=== PATIENT | female | born 1995 | race Hispanic/Latino ===

== ENCOUNTER 2017-11-14 03:30 | Inpatient (IN) | payer MEDICAID ==
[~2017-11-14] VITALS: Ht 162.6 cm; Wt 84.8 kg
[~2017-11-14 03:30] MED LIST: DOCU-116 PO; IBUP-2077 PO; PREN-196 PO
[2017-11-14 04:31] LABS: APPEARANCE,URINE Cloudy (CLEAR); BILIRUBIN,URINE Negative (NEGATIVE); COLOR,URINE Yellow (YELLOW); GLUCOSE, URINE (UA) Negative (NEGATIVE); KETONES,URINE Negative (NEGATIVE); LEUKOCYTE ESTERASE ,URINE Moderate (NEGATIVE); NITRATE,URINE Negative (NEGATIVE); OCCULT BLOOD,URINE Negative (NEGATIVE); PROTEIN,URINE Trace (NEGATIVE)
[2017-11-14] MEDS ORDERED: CEFAZOLIN SODIUM 1 GM VIAL IVP PRN (04:45)
[2017-11-14] MEDS ORDERED: LACTATED RINGERS 1000ML 1,000 ML IV SCH (04:45)
[2017-11-14 04:53] LABS: HEMATOCRIT 34.7 % (36-48); MEAN CORPUSCULAR HEMOGLOBIN 25.5 pg (27.0-33.0); MEAN CORPUSCULAR HGB CONC 31.6 g/dL (32.0-36.0); MEAN CORPUSCULAR VOLUME 80.9 fL (79-99); PLATELET COUNT (AUTO) 210 K/uL (130-400); RED BLOOD CELL COUNT(AUTO) 4.29 MIL/uL (4.00-5.50); RED CELL DISTRIBUTION WIDTH 18.1 % (11.0-15.5); WHITE BLOOD COUNT (AUTO) 11.3 K/uL (4.8-10.8)
[2017-11-14] MEDS: LACTATED RINGERS 1000ML 1,000 ML IV SCH ×2 (04:56→05:35)
[2017-11-14 04:57] LABS: BACTERIA,URINE Moderate /HPF (None Seen); RBC,URINE 0-1 /HPF (0-1)
[2017-11-14] MEDS ORDERED: BUTORPHANOL TARTRATE 2 MG/ML ONE (05:11)
[2017-11-14] MEDS ORDERED: BUTORPHANOL TARTRATE 2 MG/ML IVP ONE (05:15)
[2017-11-14] MEDS ORDERED: FENTANYL CITRATE PF 50 MCG/1 ML 2ML VIAL ONE (07:13)
[2017-11-14] MEDS ORDERED: OXYTOCIN 10 USP UNITS/ML ONE ×3 (07:13→17:35)
[2017-11-14] MEDS ORDERED: PHENYLEPHRINE HCL 10 MG/ML 1ML VIAL IV ONE (07:13)
[2017-11-14] MEDS ORDERED: DURAMORPH PF1 MG/ML 10ML AMP IV ONE (07:13)
[2017-11-14] MEDS ORDERED: CEFAZOLIN SODIUM 1 GM VIAL IVP ONE (07:30)
[2017-11-14] MEDS ORDERED: OXYTOCIN 10 UNIT/1ML 10ML VIAL ONE (07:50)
[2017-11-14] MEDS ORDERED: LACTATED RINGERS 1000ML 1,000 ML IV ONE (09:26)
[2017-11-14 09:35] VITALS: BP 105/62
[2017-11-14] MEDS ORDERED: OXYTOCIN-LR 20 UNITS/1000 ML 1,000 ML IV PRN (09:46)
[2017-11-14] MEDS ORDERED: SODIUM CHLORIDE 0.9% 10 ML VIAL IVP PRN (10:00)
[2017-11-14] MEDS ORDERED: NALOXONE HCL 0.4 MG/1 ML ML IVP PRN (10:30)
[2017-11-14] MEDS ORDERED: ONDANSETRON HCL 4 MG/2 ML 8 MG in SODIUM CHLORIDE 0.9% 50 ML IVP NR (10:30)
[2017-11-14] MEDS ORDERED: ONDANSETRON HCL 4 MG/2 ML VIAL IVP PRN (10:30)
[2017-11-14] MEDS ORDERED: METOCLOPRAMIDE 10 MG/2 ML VIAL IVP PRN (10:30)
[2017-11-14] MEDS ORDERED: HYDROCODONE/ACETAMINOPHEN 5/325 MG TAB PO PRN (10:30)
[2017-11-14] MEDS ORDERED: PROMETHAZINE HCL 25 MG/ML 1ML AMPULE IM PRN (10:30)
[2017-11-14] MEDS ORDERED: DiphenhydrAMINE HCL 50 MG/ML VIAL IVP PRN (10:30)
[2017-11-14] MEDS ORDERED: EPHEDRINE SULFATE 50 MG/ML AMPULE IVP PRN (10:30)
[2017-11-14] MEDS ORDERED: MORPHINE SULFATE 2 MG/ML 1ML SYG IVP PRN (10:30)
[2017-11-14] MEDS: ONDANSETRON HCL 4 MG/2 ML VIAL IVP PRN ×2 (11:34→18:49)
[2017-11-14 11:41] VITALS: BP_SYST 105; BP_SYST 109; BP_DIAS 59; BP_DIAS 61
[2017-11-14 15:31] VITALS: BP 99/52
[2017-11-14] MEDS: HYDROCODONE/ACETAMINOPHEN 5/325 MG TAB PO PRN (18:49)
[2017-11-14 19:48] VITALS: BP 97/55
[2017-11-15] MEDS: DEXTROSE 5 %-0.45 % NACL 1,000 ML IV PRN ×2 (00:15→05:37)
[2017-11-15 00:39] VITALS: BP 91/53
[2017-11-15 04:31] VITALS: BP 96/58
[2017-11-15] MEDS ORDERED: BISACODYL 10 MG SUPP.RECT RC PRN (05:15)
[2017-11-15] MEDS ORDERED: ACETAMINOPHEN-CODEINE 300/30MG TAB PO PRN (05:15)
[2017-11-15] MEDS ORDERED: HYDROCODONE/ACETAMINOPHEN 5/325 MG TAB PO PRN ×2 (05:15)
[2017-11-15] MEDS ORDERED: LANOLIN 30GM OINTMENT TP PRN (05:15)
[2017-11-15] MEDS ORDERED: ACETAMINOPHEN EXTRA STRENGTH 500 MG TABLET PO PRN (05:15)
[2017-11-15] MEDS: HYDROCODONE/ACETAMINOPHEN 5/325 MG TAB PO PRN (05:24)
[2017-11-15 05:34] LABS: HEMATOCRIT 26.9 % (36-48); MEAN CORPUSCULAR HGB CONC 32.2 g/dL (32.0-36.0); MEAN CORPUSCULAR VOLUME 80.9 fL (79-99); PLATELET COUNT (AUTO) 167 K/uL (130-400); RED BLOOD CELL COUNT(AUTO) 3.32 MIL/uL (4.00-5.50); RED CELL DISTRIBUTION WIDTH 18.1 % (11.0-15.5); WHITE BLOOD COUNT (AUTO) 11.3 K/uL (4.8-10.8)
[2017-11-15 07:48] VITALS: BP 109/73
[2017-11-15 08:24] LABS: HEPATITIS Bs ANTIGEN SCREEN P Negative (Negative)
[2017-11-15] MEDS: DOCUSATE SODIUM 100 MG CAP PO SCH ×2 (08:51→20:27)
[2017-11-15] MEDS: SIMETHICONE 80 MG TAB.CHEW PO PRN ×2 (08:51→22:03)
[2017-11-15] MEDS: IBUPROFEN 600 MG TABLET PO PRN ×2 (08:51→17:20)
[2017-11-15] MEDS ORDERED: MEASLES/MUMPS/RUBELLA VACCINE, LIVE 0.5 ML/VIAL SQ SCH (09:00)
[2017-11-15] MEDS ORDERED: DIPH,PERTUSS(ACELL),TET VAC/PF 0.5 ML VIAL IM SCH (09:00)
[2017-11-15 11:28] VITALS: BP 87/57
[2017-11-15 15:54] VITALS: BP 100/58
[2017-11-15 19:56] VITALS: BP 113/62
[2017-11-16 00:34] VITALS: BP 107/62
[2017-11-16 05:31] VITALS: BP 108/63
[2017-11-16 07:36] VITALS: BP 109/62
[2017-11-16] MEDS: SIMETHICONE 80 MG TAB.CHEW PO PRN (07:47)
[2017-11-16] MEDS: IBUPROFEN 600 MG TABLET PO PRN (07:49)
[2017-11-16 11:00] VITALS: BP 108/70
[2017-11-16 15:19] VITALS: BP 113/72
== END 2017-11-16 15:45 | disposition home or self-care (01) | DRG 540 ==
LOC: EDH 03:30 → LDH 03:31 → OBSVTOIN 04:37 → WSH 09:35
PROVIDERS: ADMIT Obstetrics & Gynecology; ATTEND Obstetrics & Gynecology
PROC: 10D00Z1 Extraction of Products of Conception, Low, Open Approach (ICD-10-PCS; principal; 2017-11-14 07:30)
PROC: 3E0234Z Introduction of Serum, Toxoid and Vaccine into Muscle, Percutaneous Approach (ICD-10-PCS; 2017-11-15)
DX: O34.211 Maternal care for low transverse scar from previous cesarean delivery (principal); O69.1XX0 Labor and delivery complicated by cord around neck, with compression, not applicable or unspecified; Z23 Encounter for immunization; Z37.0 Single live birth; Z3A.38 38 weeks gestation of pregnancy
CPT/HCPCS: 36415; 59510; 81001; 85027; 86592; 86850; 86900; 86901; 87340; 90707; 90715; A4344; A4450; A4606; J0595; J0690; J2274; J2370; J2405; J2590; J3010; J7120; Q2038

== ENCOUNTER 2021-08-03 21:36 | Emergency (ER) | payer MEDICAID ==
[~2021-08-03] VITALS: Ht 162.6 cm; Wt 86.2 kg
[~2021-08-03 21:36] MED LIST changes: -DOCU-116 PO; -IBUP-2077 PO
[2021-08-03 22:24] LABS: BASOPHILS % (AUTO) 0.1 % (0.0-5.0); EOSINOPHILS % (AUTO) 1.9 % (0.0-8.0); HEMATOCRIT 37.3 % (36-48); MEAN CORPUSCULAR HEMOGLOBIN 27.3 pg (27.0-33.0); MEAN CORPUSCULAR HGB CONC 31.6 g/dL (32.0-36.0); MEAN CORPUSCULAR VOLUME 86.3 fL (79-99); MONOCYTES % (AUTO) 6.8 % (3.0-13.0); PLATELET COUNT (AUTO) 282 K/uL (130-400); RED BLOOD CELL COUNT(AUTO) 4.32 MIL/uL (4.00-5.50); RED CELL DISTRIBUTION WIDTH 14.6 % (11.0-15.5)
[2021-08-03 22:41] LABS: CREATININE 0.6 mg/dL (0.5-1.5); POTASSIUM 3.8 mmol/L (3.5-5.1)
[2021-08-03 22:52] LABS: ALBUMIN 3.6 g/dL (3.5-5.0); BILIRUBIN,TOTAL 0.2 mg/dL (0.2-1.0); TOTAL PROTEIN, SERUM 7.6 g/dL (6.0-8.3)
[2021-08-03 23:38] LABS: APPEARANCE,URINE Clear (CLEAR); BILIRUBIN,URINE Negative (NEGATIVE); COLOR,URINE Yellow (YELLOW); GLUCOSE, URINE (UA) Negative (NEGATIVE); KETONES,URINE Negative (NEGATIVE); LEUKOCYTE ESTERASE ,URINE Negative (NEGATIVE); NITRATE,URINE Negative (NEGATIVE); OCCULT BLOOD,URINE Nonhemolyzed Trace (NEGATIVE); PROTEIN,URINE Negative (NEGATIVE)
[2021-08-03 23:41] LABS: HCG,QUAL RESULT POSITIVE (NEGATIVE)
[2021-08-03 23:47] LABS: BACTERIA,URINE Rare /HPF (None Seen); RBC,URINE 0-1 /HPF (0-1); SQUAMOUS EPITHELIAL CELL,UR 0-2 /HPF (0-2); WBC,URINE 0-1 /HPF (0-1)
[2021-08-04 00:06] VITALS: BP 115/79
== END 2021-08-04 00:13 | disposition home or self-care (01) ==
LOC: EDH 21:36
DX: O20.9 Hemorrhage in early pregnancy, unspecified (principal); O26.891 Other specified pregnancy related conditions, first trimester; R10.30 Lower abdominal pain, unspecified; Z3A.01 Less than 8 weeks gestation of pregnancy
CPT/HCPCS: 36415; 80053; 81001; 81025; 84702; 85025; 86900; 86901